=== PATIENT | male | born 1960 | race Caucasian/White ===

== ENCOUNTER 2023-07-06 11:24 | Day surgery (SDC) | payer MEDICARE ==
--- NOTE | 2023-07-05 10:35 | P.HPOR ---
History of Present Illness H&P Date: 07/05/23 Subjective: This is a 62 year old male that presents today for initial evaluation regarding a long-standing history of chronic right wrist pain. He states his symptoms started from an old injury in 2017 in which he describes he had a ligament injury in the wrist and underwent an initial wrist arthroscopy procedure with Dr. Arellano follow closely by a subsequent ligament repair surgery. He states this ligament repair failed and was then seen by Dr. Lawrence approximately three years ago who recommended and performed a right wrist proximal row carpectomy due to developing arthritis. He states since the surgery three years ago his wrist has been constantly painful and he has been unable to use the hand or wrist for any type of activity, he is right hand dominant. He states he has pain at rest and the only time he has relief is when he wears a wrist brace. He states he has pain with any type of movement of the wrist and the pain is located on the dorsal aspect of the wrist but also radiates to the palm side. He also complains of numbness that is worse in the right thumb and sometimes radiates to the index and middle fingers. He's had steroid injection since his proximal row carpectomy which provided only minimal relief. Physical Examination: RUE: AIN/PIN/Radial/Ulnar/Median motor intact. Radial/Ulnar/Median SILT. 2+/4 Radial/Ulnar pulses palpated. 5/5 APB, 5/5 FDI. Wrist Flexion 25 degrees, wrist extension 15 degrees with pain at terminal flexion/extension. Able to make a full fist. Transverse incision present at dorsal radiocarpal joint level. Near full pronation/supination without pain. Positive Durkan's compression. Imaging: X-Rays of the right wrist 3V taken in office today demonstrates post surgical changes consistent with proximal row carpectomy. Radiocapitate articulation appears to be narrowed with development of arthritic changes at the radiocarpal articulation. 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 We discussed the complexity of his problem and he has already had multiple salvage procedures performed on this wrist. We discussed his options are continued observation with occasional steroid injections as needed and bracing and we discussed it is relatively common to see arthritic changes develop several years after proximal row carpectomy but often it is not symptomatic. In his case we discussed he does seem symptomatic with this new arthritic articulation between the radius and the capitate. We discussed his likely most effective option at pain relief would be a total wrist fusion at the expense of permanent wrist immobilization due to fusion. He states he no longer wishes to have to wear a wrist brace and that wrist bracing is the only thing that gives him some sort of pain relief. He wishes to go forward with right total wrist arthrodesis with right endoscopic vs open carpal tunnel release. Risks and benefits of surgery including bleeding, infection, damage to surrounding tissue, need for further surgery, non union, continued pain, and residual numbness were discussed and the patient wished to go forward with surgery. The patient was agreeable with this plan. -Andrew Sinha DO Orthopedic Hand/Upper Extremity Surgeon Past Medical History Past Medical History: Diabetes Mellitus, Hyperlipidemia, Hypertension, Osteoarthritis (OA) Additional Past Medical History / Comment(s): Pt SOB and tired had a heart cath - pt states he was found to have 20% EF - leading to pacemaker and AICD History of Any Multi-Drug Resistant Organisms: None Reported Past Surgical History: AICD, Heart Catheterization, Pacemaker Additional Past Surgical History / Comment(s): colonoscopy, heart cath at [facility]. wrist surgeries. Past Anesthesia/Blood Transfusion Reactions: No Reported Reaction Type of Cardiac Device: Permanent Pacemaker, AICD Device Placement Date:: 2020 [employer] Smoking Status: Never smoker - Past Family History Brother(s) Family Medical History: Coronary Artery Disease (CAD) Medications and Allergies Home Medications Medication Instructions Recorded Confirmed Type Losartan Potassium 100 mg PO DAILY 04/22/23 07/01/23 History Metoprolol Succinate (ER) [Toprol 75 mg PO DAILY 04/22/23 07/01/23 History Xl] amLODIPine BESYLATE 10 mg PO DAILY 04/22/23 07/01/23 History Unk Multi Vitamn 1 tab PO DAILY 07/01/23 07/01/23 History Dapagliflozin Propanediol [Farxiga] 10 mg PO DAILY 07/01/23 07/01/23 History Allergies Allergy/AdvReac Type Severity Reaction Status Date / Time No Known Allergies Allergy Verified 07/01/23 12:58 Physical Examination Osteopathic Statement: *. No significant issues noted on an osteopathic structural exam other than those noted in the History and Physical/Consult.
[~2023-07-06 11:24] MED LIST: DEXAMETHASONE SOD PHOSPHATE 4 MG/ML 1 ML VIAL IV ONE; HYDROmorphone 0.5 MG/0.5 ML SYRINGE IVP PRN; LACTATED RINGERS 1,000 ML IV SCH; LIDOCAINE 1% (10MG/ML) FOR IV START INTRADERMA PRN; MIDAZOLAM 2 MG/2 ML VIAL IV PRN; fentaNYL (PF) 50 MCG/ML 2 ML AMP IVP PRN
[2023-07-06 11:52] VITALS: RESP 16
[2023-07-06] MEDS: LACTATED RINGERS 1,000 ML IV ONE ×2 (11:53→14:49)
[2023-07-06 12:01] LABS: Glucose,Whole Blood 136 mg/dL (70-110)
[2023-07-06] MEDS ORDERED: ONDANSETRON 4 MG/2 ML VIAL ONE (12:01)
[2023-07-06] MEDS: ONDANSETRON 4 MG/2 ML VIAL IVP ONE (12:08)
[2023-07-06] MEDS: MIDAZOLAM 2 MG/2 ML VIAL IVP ONE (12:34)
[2023-07-06] MEDS: fentaNYL (PF) 50 MCG/1 ML VIAL IVP ONE (12:34)
[2023-07-06] MEDS ORDERED: ROPIVACAINE 5 MG/ML 30 ML VIAL ONE (13:30)
[2023-07-06] MEDS ORDERED: LIDOCAINE 1% INJ 10MG/ML (20 ML MDV) ONE (13:30)
[2023-07-06] MEDS ORDERED: fentaNYL (PF) 50 MCG/ML 2 ML AMP ONE (13:30)
[2023-07-06] MEDS ORDERED: SUCCINYLCHOLINE CHLORIDE 200 MG/10 ML VIAL IV ONE (13:30)
[2023-07-06] MEDS ORDERED: PROPOFOL 10 MG/ML 20 ML VIAL IV ONE (13:30)
[2023-07-06] MEDS ORDERED: ePHEDrine 50 MG/ML 1 ML VIAL ONE (13:30)
[2023-07-06] MEDS ORDERED: PHENYLEPHRINE-0.9% NACL SYG 1,000 MCG/10 ML SYRINGE ONE (13:30)
[2023-07-06] MEDS ORDERED: VASOPRESSIN 20 UNIT/ML 1 ML VIAL ONE (13:30)
--- NOTE | 2023-07-06 15:10 | P.ANPRN ---
Procedure Note - Anesthesia - Nerve Block Performed Right Axillary Single Time Out Performed: Yes (1233) Date of Procedure: 07/06/23 Procedure Start Time: 12:34 Procedure Stop Time: 12:39 Location of Patient: PreOp Indication: Acute Post-Operative Pain, Requested by Surgeon Specifically requested for management of pain by DrKhurram: Andrew Sinha Sedation Type: Sedate with meaningful contact maintained Preparation: Sterile Prep Position: Supine (arm over) Catheter: None Needle Types: Pajunk Needle Gauge: 21 Ultrasound used to visualize needle placement: Yes Ultrasound used to observe medication spread: Yes Injectate: 0.5% Ropivacaine (see comment for volume) (10cc each at 4 nerves - median, ulnar, radial and mskcut) Blood Aspirated: No Pain Paresthesia on Injection Noted: No Resistance on Injection: Normal Image Stored and Saved: Yes Events: Uneventful and Well Tolerated
[2023-07-06 17:00] VITALS: BP 128/76; PULSE 80; TEMP 98.6
--- NOTE | 2023-07-06 17:20 | P.OP ---
Date of Procedure: 07/06/23 Preoperative Diagnosis: 1.) Right wrist arthritis 2.) Right carpal tunnel syndrome Postoperative Diagnosis: 1.) Right wrist arthritis 2.) Right carpal tunnel syndrome Procedure(s) Performed: 1.) Right total wrist arthrodesis with distal radius autograft (48021-60) 2.) Right endoscopic carpal tunnel release (49484) 3.) Right wrist extensor tenolysis at level of wrist (80239) Implants: Cesar total wrist fusion plate, straight. Anesthesia: MARTELL, [facility] Surgeon: Andrew Sinha Barbed Wire Machine Operator #1: Stephon Morales Estimated Blood Loss (ml): 15 Pathology: none sent Condition: stable Disposition: PACU Description of Procedure: This is a 63 year old male who presents today for a right total wrist arthrodesis and endoscopic carpal tunnel release after undergoing several previous operations for SLAC wrist in the past including wrist arthroscopy, previous SL ligament repair and subsequent proximal row carpectomy that developed pain and arthritis and the capito-radial joint and carpal tunnel syndrome. Risks and benefits of surgery were discussed with the patient including bleeding, damage to surrounding tissue, infection, need for further surgery as well as risks of anesthesia including pulmonary embolism and even and the patient wished to proceed with surgical intervention. The patient was seen in the pre-operative area by myself. Consent and H&P were completed and updated. The correct extremity was marked in the pre-operative area by myself and all other questions were answered. Operative Narrative: The patient was brought to the operating room by the department of anesthesia. They remained on the portable stretcher and a rolling hand table was brought to the side of the operative extremity. Pre-operative time out was performed indicating the correct patient, procedure and laterality. All in the room agreed. Pre-operative antibiotics were given prior to skin incision. The patient was then drifted off to sleep by the department of anesthesia. A nonsterile tourniquet was then applied to the operative extremity and the right upper extremity was then prepped and draped in normal sterile fashion. The operative extremity was the exsanguinated with an esmarch bandage and the tourniquet was inflated to 250mmHg. 15 blade scalpel was utilized to make a transverse incision on the palmar skin just ulnar to the palmaris longus tendon at the level of the distal wrist crease. Ragnell retractor was then placed radially and blunt dissection was performed to reveal the distal forearm fascia. This was lifted with fine Mil pick ups and Supriyar tenotomy scissors were then used to open the forearm fascia transversely and a double skin hook was then placed. Hamate finder was placed into the carpal tunnel and then sequential sized dilators were inserted followed by the synovial elevator to separate the flexor tenosynovium from the undersurface of the transverse carpal ligament and a washboard texture was felt. The [employer] endoscopic carpal tunnel release system gun was the then inserted into the carpal tunnel hugging the deep portion of the transverse carpal ligament in line with the base of the ring finger. Transverse fibers of the ligament were directly visualized. Pressure was applied on the palm to reveal the distal extent of the transverse carpal ligament. The blade was then deployed and the distal half of the transverse carpal ligament was released. The scope was then brought distal again and remaining transverse fibers were incised with the blade. The proximal half of the transverse carpal ligament was then divided and again the scope was advanced distal and remaining transverse fibers were incised with the blade. The radial and ulnar leaflets were directly visualized and mobile consistent with complete release. Tenotomy scissors were then utilized to release the remaining distal forearm fascia under direct visualization taking care to preserve the palmar cutaneous branch of the median nerve. Attention was drawn to the dorsal wrist. Longitudinal incision was made centered of the mid portion of the wrist in line with the third metacarpal with a 15 blade scalpel. Blunt dissection was taken down to the proximal portion of the extensor retinaculum and the 3rd dorsal compartment was incised sharply and the EPL tendon was identified and transposed this was trapped in extensive scar tissue due to his multiple prior surgeries and extensor tenolysis was performed releasing adhesions present around the second, third and fourth dorsal extensor compartments. The 4th dorsal compartment was then subperiosteally elevated from radial to ulnar to make room for the spanning plate. Capsulotomy was performed with a radially based flap to reveal the dorsal carpal bones. There was severe arthritic changes at both the radiocapitate articulation therefore decision to proceed with total wrist arthrodesis was made. Longitudinal traction was applied and a high speed burn was utilized to decorticate the remaining cartilage between the radius and capitate down to fresh bleeding cancellous bone. Distal radius autograft was then harvested from the dorsal aspect of the distal radius through a cortical window at the level of janina's tubercle. A straight [place] total wrist fusion plate was then chosen to best fit the patients anatomy, shallow and deep bends were trialed but did not match the patients natural dorsal curve due to his history of previous proximal row carpectomy. The obtained distal radius autograft bone was then packed in the radiocapitate articulation. The plate was first secured distally to the proximal portion of the third metacarpal shaft with non-locking screws with great purchase. The plate was then fixed proximally to the radial shaft and inserted in compression mode with non-locking screws. The remainder of the screw holes were filled proximally and distally with good compression achieved across the wrist fusion site. Imaging confirmed correct screw lengths and compression across the wrist joint and good plate placement. The wound was then irrigated. Capsular closure was performed with 2-0 vicryl suture and layered closure was performed with 4-0 monocryl and a running 4-0 monocryl suture, and steri strips. A short arm p jose splint was applied. Tourniquet was let down and the hand had immediate perfusion. The patient was then woken by the department of anesthesia and transferred to PACU in stable condition. Stephon ANDREW was present to assist in major portions of the case including hardware placement, reduction and retraction. Modifier 22 is requested due to the increased complexity of the wrist fusion portion of the case due to the patient having an extensive previous surgical history on the wrist including wrist arthroscopy, scapholunate ligament reconstruction, and prior proximal row carpectomy that resulted in dissecting and navigating through altered anatomy and extensive scarring. Andrew Sinha D.O. Orthopedic Hand/Upper Extremity Surgeon
== END 2023-07-06 17:12 | disposition home or self-care (01) ==
LOC: OR 11:24
PROVIDERS: ATTEND Orthopaedic Surgery Hand Surgery
DX: G56.01 Carpal tunnel syndrome, right upper limb (principal); M19.031 Primary osteoarthritis, right wrist; I10 Essential (primary) hypertension; G89.18 Other acute postprocedural pain; E78.5 Hyperlipidemia, unspecified; E11.9 Type 2 diabetes mellitus without complications; Z79.84 Long term (current) use of oral hypoglycemic drugs; Z95.810 Presence of automatic (implantable) cardiac defibrillator; Z79.899 Other long term (current) drug therapy
CPT/HCPCS: 64415; 29848; 26449; 25810; C1776; J2250; J0330; J0690; J2405; J2001; J3010 ×2; J2795; J2704; J2371

== ENCOUNTER → 2024-01-11 | Outpatient (CLI) | payer MEDICARE ==
[2024-01-11 15:36] VITALS: BP 127/76; PULSE 56; RESP 16; TEMP 98.1
--- NOTE | 2024-01-11 15:58 | P.SLEEP ---
History of Present Illness DATE: 01/11/2024 CONSULTATION/NEW PATIENT EVALUATION HISTORY OF PRESENT ILLNESS/SLEEP-WAKE EVALUATION: 63-year-old gentleman had been evaluated in the sleep center for possible obstructive sleep apnea hypopnea syndrome. SLEEP SCHEDULE: Usually sleep schedule from 9:30 PM to 6:45 AM 7 days a week. FALLING ASLEEP: Usually patient does not have significant problems with falling asleep. DURING SLEEP: Patient has snoring and wakes up from sleep with nocturia. Patient sleeps in different positions including back, side and stomach position. No history of hypnogogical hallucinations, sleep paralysis, or cataplexy. DURING THE DAY/WAKE STATE: []. Carrie sleepiness scale is 1. Usually patient does not take any naps. PAST MEDICAL HISTORY: Hypertension, diabetes mellitus, hyperlipidemia, cardiac arrhythmia. PAST SURGICAL HISTORY: Permanent pacemaker and defibrillator insertion, multiple right wrist surgeries. MEDICATIONS: Please see below. SOCIAL HISTORY: Please see below. FAMILY HISTORY: Please see below. REVIEW OF SYSTEMS: Snoring, awakenings from sleep. No fevers. No double vision. No recent chest pain. No shortness of breath. No abdominal pain. No bleeding episodes. No blood in urine. No seizure episodes. PHYSICAL EXAMINATION: GENERAL: A pleasant patient without any distress. VITAL SIGNS: Please see below, weight 259 pounds, BMI 37.6. HEENT: PERRLA, EOMI. Evaluation of oropharynx showed tongue protrudes midline, low position of soft palate Mallampati 4. NECK: Supple. No JVD. Thyroid is not palpable. 18 inches in circumference. LUNGS: Clear to percussion and to auscultation. Good air exchange. No wheezing or rhonchi. HEART: S1, S2 regular. No murmurs, gallops or rubs. ABDOMEN: Soft and nontender. Bowel sounds are present. No organomegaly appreciated. EXTREMITIES: No clubbing or cyanosis. FREE LANCE MODEL: Awake, alert, and oriented x3. Cranial nerves 2 to 7 intact. There is no fasciculation or atrophy noted. No focal deficits observed. ASSESSMENT: 1. Snoring, awakenings from sleep, extremely low position of soft palate Mallampati 4, wide neck 18 inches in circumference. Obstructive sleep apnea hypopnea syndrome. 2. Obesity, BMI 37.6. 3. Hypertension. 4. Diabetes mellitus. 5 history of cardiac arrhythmia, status post permanent pacemaker insertion and defibrillator. 6 . Status post multiple right wrist surgeries. PLAN: 1. Polysomnography for evaluation of patient's breathing during sleep. 2. Following plan after reading sleep study. 3. Preferable position during sleep on the side. 4. No driving if patient feels any sleepiness. Patient is aware of civil and criminal liability for unsafe driving. 5. Sleep hygiene with regular sleep time for at least 7.5-8 hours. 6. Watching and losing weight. Thank you very much for referring this patient for consultation. Sincerely, Oscar Lam MD, PhD, FAASM. Diplomat of [place] [employer], Sleep Medicine Board by [place] [employer] [place] [employer] Certified Coatings Inspector of [facility] [place] cc: Antonio Bustillo MD Past Medical History Past Medical History: Diabetes Mellitus, Hyperlipidemia, Hypertension, Osteoarthritis (OA) Additional Past Medical History / Comment(s): Pt SOB and tired had a heart cath - pt states he was found to have 20% EF - leading to pacemaker and AICD History of Any Multi-Drug Resistant Organisms: None Reported Past Surgical History: AICD, Heart Catheterization, Pacemaker Additional Past Surgical History / Comment(s): colonoscopy, heart cath at [facility]. wrist surgeries. Past Anesthesia/Blood Transfusion Reactions: No Reported Reaction Type of Cardiac Device: Permanent Pacemaker, AICD Device Placement Date:: 2020 [employer] Past Psychological History: No Psychological Hx Reported Smoking Status: Never smoker Past Alcohol Use History: Occasional Past Drug Use History: None Reported - Past Family History Brother(s) Family Medical History: Coronary Artery Disease (CAD) Father Family Medical History: Cancer Additional Family Medical History / Comment(s): snoring Medications and Allergies Home Medications Medication Instructions Recorded Confirmed Type Losartan Potassium 100 mg PO DAILY 04/22/23 01/11/24 History Metoprolol Succinate (ER) [Toprol 75 mg PO DAILY 04/22/23 01/11/24 History Xl] amLODIPine BESYLATE 10 mg PO DAILY 04/22/23 01/11/24 History Unk Multi Vitamn 1 tab PO DAILY 07/01/23 01/11/24 History Dapagliflozin Propanediol [Farxiga] 10 mg PO DAILY 07/01/23 01/11/24 History HYDROcodone/APAP 7.5-325MG [[place] 1 tab PO Q4-6H PRN #24 tab 07/06/23 Rx 7.5-325] Allergies Allergy/AdvReac Type Severity Reaction Status Date / Time No Known Allergies Allergy Verified 07/06/23 11:43 Physical Exam Vitals: Vital Signs Temp Pulse Resp BP Pulse Ox 01/11/24 15:34 98.1 F 56 L 16 127/76 96 Intake and Output 01/11/24 01/11/24 01/11/24 06:59 14:59 22:59 Other: Weight 117.48 kg Sleep Note - Sleep Data ESS Total: 1 - Sleep Note Sleep Note: Temperature: 98.1 F Pulse Rate: 56 Respiratory Rate: 16 Blood Pressure: 127/76 SpO2: 96 Height: 5 ft 9.5 in Weight: 117.48 kg BMI: Neck Circumference:
== END ==
LOC: 3 N SLEEP 15:17
PROVIDERS: ATTEND Internal Medicine
DX: G47.33 Obstructive sleep apnea (adult) (pediatric) (principal); E66.9 Obesity, unspecified; I10 Essential (primary) hypertension; E11.9 Type 2 diabetes mellitus without complications; Z98.890 Other specified postprocedural states; Z86.79 Personal history of other diseases of the circulatory system; Z95.810 Presence of automatic (implantable) cardiac defibrillator; Z68.37 Body mass index [BMI] 37.0-37.9, adult; Z79.899 Other long term (current) drug therapy
CPT/HCPCS: 99211

== ENCOUNTER 2024-01-24 19:42 | Outpatient (CLI) | payer MEDICARE ==
--- NOTE | 2024-02-02 13:27 | P.PCN ---
Description of Procedure: POLYSOMNOGRAPHY REPORT PROCEDURE(S)/DATE(S): Polysomnography 01/24/2024 CLINICAL: Patient has been seen in the sleep center for evaluation of obstructive sleep apnea-hypopnea syndrome. Please see my consultation. Sleep study has been done for evaluation of patient breathing during the sleep. PROCEDURE: The standard montage for clinical polysomnography included the electroencephalogram, the electrooculogram, the mentalis surface electromyography and Lead II cardiography. The respiratory battery consisted of measurements of nasal/buccal air flow, pressure transducer measurements from nose, thoracic and/or abdominal effort and intercostal surface electromyography. Video monitoring has been done to check for any parasomnia events. Nocturnal oxyhemoglobin saturations were obtained by finger oximetry. Step-engle titration with positive airway pressure was utilized to control the respiratory events, if necessary. RESULTS: During the diagnostic sleep study sleep efficiency was extremely short 65.3%. Latency to sleep onset was borderline 27.0 min. Sleep architecture jr wed stage NI was increased to 19.7%, Delta sleep was practically absent 0.2%, REM sleep was decreased to 11.7%. Respiratory channel showed 33 obstructive apneas, 0 mixed apneas, 0 central apneas, 213 hypopneas with lowest oxygen level 77%. Total apnea hypopnea index was 53.9. Heart rate was in the range between 49 and 58, average 52. EMG showed 3.9 periodic limb movements per hour with 1.5 micro-arousals per hour. IMPRESSIONS: 1. Severe obstructive sleep apnea hypopnea syndrome. 2. No significant periodic limb movements have been documented. Please see other impressions from consultation PLAN: 1. The patient will have PAP titration for correction of respiratory abnormalities during the sleep. 2. Losing weight program. 3. Sleep hygiene with regular time in bed for at least 7-1/2 hours. 4. No driving if feeling sleepiness. Thank you very much for allowing me to participate in the management of your patient. Sincerely, Oscar Lam MD, PhD, FAASM. Diplomat of [place] [employer], Sleep Medicine Board by [place] [employer] Medical Staffing Coordinator of [facility] [place] cc: Antonio Bustillo MD
== END 2024-01-25 05:15 | disposition home or self-care (01) ==
LOC: 3 N SLEEP 19:42
PROVIDERS: ATTEND Internal Medicine
DX: G47.33 Obstructive sleep apnea (adult) (pediatric) (principal)
CPT/HCPCS: 95810

== ENCOUNTER 2024-03-18 19:52 | Outpatient (CLI) | payer MEDICARE ==
--- NOTE | 2024-03-22 19:05 | P.PCN ---
Description of Procedure: CLINICAL: Titration with positive air pressure has been done for correction of respiratory abnormalities during sleep. DESCRIPTION OF PROCEDURE: The standard montage for clinical polysomnography included the electroencephalogram, the electrocardiogram, the mentalis surface electromyography and Lead II cardiography. The respiratory battery consisted of measurements of nasal /buccal air flow, pressure transducer measurements from the nose, thoracic and /or abdominal effort and intercostal surface electromyography. Video monitoring has been done to check for any parasomnia events. Nocturnal oxyhemoglobin saturations were obtained by finger oximetry. Step-engle titration with positive airway pressure was utilized to control respiratory events. Raw data of sleep recording has been reviewed and is adequate. RESULTS: Sleep efficiency was decreased to 74.8%. Latency to sleep onset was significantly prolonged to 51.0 minutes.]. Sleep architecture showed stage N1 was normal 4.8%, Delta sleep was absent 0%, REM sleep was decreased to 14.0%. Heart rate was minimum 50 BPM, maximum 55 BPM, average 51 BPM. EMG showed 0.7 periodic limb movements per hour with 0.2 micriarousals per hour. PAP titration have been done with CPAP up to the pressure 12 cm H2O. The best results were at the pressure 12 cm H2O. Apnea hypopnea index reduced to 2.6. IMPRESSION: 1. Obstructive sleep apnea hypopnea syndrome on controle with PAP treatment. 2. No significant periodic limb movements have been documented. Please see other impressions from consultation. PLAN: 1. The patient will have treatment with positive air pressure equipment with the level of pressure AutoPap 6-13 cm H2O and should use it every night for the whole night. 2. Watching and losing weight. 3. Sleep hygiene with regular time in bed for at least 8 hours. 4. No driving if feeling any sleepiness. 5. I will see the patient for follow up visit to explain the results of the test, recommendations, check compliance with treatment and make any necessary adjustment related to mask fitting, pressure and humidification. Thank you very much for allowing me to participate in the management of your patient. Sincerely, Oscar Lam MD, PhD, FAASM Diplomat of [place] [employer] Sleep Medicine Board of [place] [employer] [facility] [place] cc: Antonio Bustillo MD
== END 2024-03-19 05:48 | disposition home or self-care (01) ==
LOC: 3 N SLEEP 19:52
PROVIDERS: ATTEND Internal Medicine
DX: G47.33 Obstructive sleep apnea (adult) (pediatric) (principal)
CPT/HCPCS: 95811

== ENCOUNTER → 2024-06-13 | Outpatient (CLI) | payer MEDICARE ==
[2024-06-13 15:11] VITALS: BP 133/72; PULSE 56; RESP 16; TEMP 98.2
--- NOTE | 2024-06-13 15:25 | P.PROGSL ---
Subjective DATE: 06/13/2024 FOLLOW UP VISIT. Patient with obstructive sleep apnea hypopnea syndrome return to sleep center for follow-up visit. Recently patient had sleep study which documented obstructive sleep apnea hypopnea syndrome. Patient was initiated on PAP therapy and today is first visit after treatment was started. I discussed results of sleep studies with patient in details. Patient was able to use PAP equipment every night for the whole night. Patient feels better while using CPAP equipment. The patient does not have significant problems with the mask, PAP pressure and humidification. Andreas sleepiness scale is 2, which is perfect. I checked information from PAP unit. PAP unit pressure 6-13, average 10.6 cm H2O. Usage is 90% for more then 4 hours, average 8 hours per night. Leak is 8.1 l/m, which is in acceptable range. Apnea Hypopnea Index is 1.3, which is normal. MEDICATIONS: Below During physical exam: GENERAL: A pleasant patient without any distress. VITAL SIGNS:, Weight 269 pounds. HEENT: PERRLA, EOMI.low position of soft palate, Mallapati 4 . NECK: Supple. No JVD. LUNGS: Clear to percussion and to auscultation. Good air exchange. No wheezing or rhonchi. HEART: S1, S2 regular. ABDOMEN: Soft and nontender. Obese EXTREMITIES: No clubbing or cyanosis. [employer]SEM[employer]ER: Awake, alert, and oriented x3. No focal deficit. Impressions: 1. Obstructive sleep apnea-hypopnea syndrome. Patient demonstrated great compliance with treatment, benefiting from treatment. 2. Obesity. 3. Hypertension. 4. Diabetes mellitus. 5. History of cardiac arrhythmia, status post permanent pacemaker defibrillator insertion. 6. Status post multiple right wrist surgeries. Plan: 1. Continue using PAP equipment every night for the whole night. 2. To change air filter at least 1-2 times per month. 3. PAP unit should stay lower then position of the head. 4. Advised patient to remove all remaining water from humidifier canister daily and make it dry after each usage. Refill canister with fresh distilled water before each usage. 5. Sleep hygiene with regular time in bed for at least 8 hours. 6. Precautions related to driving. No driving if feel any sleepiness. 7. I will maintain prescription for PAP supplies including mask, tube, filters. 8. Follow up visit in 6 months or earlier if patient has any problems. 9. Watching and losing weight. Thank you very much for allowing me to participate in the management of your patient. Oscar Lam MD, PhD, FAASM. Diplomat of [place] [employer], Sleep Medicine Board by [place] [employer] Final Inspector [employer] [facility] [place] Objective - Vital Signs Vital Signs: Vital Signs Temp 98.2 F 06/13/24 15:10 Pulse 56 L 06/13/24 15:10 Resp 16 06/13/24 15:10 BP 133/72 06/13/24 15:10 Pulse Ox 96 06/13/24 15:10 FiO2 Home Medications: Home Medications Medication Instructions Recorded Confirmed Type Losartan Potassium 100 mg PO DAILY 04/22/23 01/11/24 History Metoprolol Succinate (ER) [Toprol 75 mg PO DAILY 04/22/23 01/11/24 History Xl] amLODIPine BESYLATE 10 mg PO DAILY 04/22/23 01/11/24 History Unk Multi Vitamn 1 tab PO DAILY 07/01/23 01/11/24 History Dapagliflozin Propanediol [Farxiga] 10 mg PO DAILY 07/01/23 01/11/24 History HYDROcodone/APAP 7.5-325MG [[place] 1 tab PO Q4-6H PRN #24 tab 07/06/23 Rx 7.5-325]
== END ==
LOC: 3 N SLEEP 14:38
PROVIDERS: ATTEND Internal Medicine
DX: G47.33 Obstructive sleep apnea (adult) (pediatric) (principal); E66.9 Obesity, unspecified; I10 Essential (primary) hypertension; E78.5 Hyperlipidemia, unspecified; Z86.79 Personal history of other diseases of the circulatory system; Z95.810 Presence of automatic (implantable) cardiac defibrillator; Z98.890 Other specified postprocedural states
CPT/HCPCS: 99212